=== PATIENT | female | born 1985 | race Caucasian/White ===

== ENCOUNTER 2019-01-26 05:39 | Observation (INO) | payer BC ==
[2019-01-26] MEDS ORDERED: GABAPENTIN 300 MG CAP PO ONE (05:59)
[2019-01-26] MEDS ORDERED: ceFAZolin 2 GM/DEXTROSE 100 ML IV ONE (05:59)
[2019-01-26] MEDS ORDERED: LR 1,000 ML IV ONE (05:59)
[2019-01-26] MEDS ORDERED: PHENAZOPYRIDINE HCL 200 MG TAB PO ONE (05:59)
[2019-01-26] MEDS ORDERED: ACETAMINOPHEN 500 MG TAB PO ONE (05:59)
[2019-01-26] MEDS ORDERED: BUPIVACAINE/EPI 0.5% 30 ML SDV ONE (06:37)
--- NOTE | 2019-01-26 06:46 | PDANEPAE ---
ANE History of Present Illness here for robotic endometriosis excision ANE Past Medical History - Cardiovascular History Hx Hypertension: No Hx Arrhythmias: No Hx Chest Pain: No Hx Coronary Artery / Peripheral Vascular Disease: No Hx CHF / Valvular Disease: No Hx Palpitations: No Cardiovascular History Comment: pre-eclampsia with pregnancies - Pulmonary History Hx COPD: No Hx Asthma/Reactive Airway Disease: Yes Hx Recent Upper Respiratory Infection: No Hx Oxygen in Use at Home: No Hx Sleep Apnea: No Sleep Apnea Screening Result - Last Documented: Negative Pulmonary History Comment: exercise induced - Neurologic History Hx Cerebrovascular Accident: No Hx Seizures: No Hx Dementia: No - Endocrine History Hx Diabetes: No - Renal History Hx Renal Disorders: No - Liver History Hx Hepatic Disorders: No - Neurological & Psychiatric Hx Hx Neurological and Psychiatric Disorders: Yes Neurological / Psychiatric History Comment: anxiety R/T recent accident - Cancer History Hx Cancer: No - GI History Hx Gastrointestinal Disorders: No - Other Health History Other Health History: none - Chronic Pain History Chronic Pain: Yes (tail bone,right shoulder) - Surgical History Prior Surgeries: x 2. wisdom teeth ANE Review of Systems Review of systems is: negative Review of Systems: - Exercise capacity Exercise capacity: >=4 METS METS (RN): 4 METS ANE Patient History - Allergies Allergies/Adverse Reactions: Sulfa (Sulfonamide Antibiotics) Allergy (Verified 01/14/19 15:16) Hives - Home Medications Home medications: home medication list seen and reviewed Home Medications: Contol 01/14/19 [Last Taken Unknown] Levothyroxine 01/14/19 [Last Taken 01/26/19 04:30] - NPO status NPO Status: no food or drink >8 hours NPO Since - Liquids (Date): 01/25/19 NPO Since - Liquids (Time): 21:00 NPO Since - Solids (Date): 01/25/19 NPO Since - Solids (Time): 18:00 - Anes Hx Anes Hx: no prior problems - Smoking Hx Smoking Status: Never smoked - Family Anes Hx Family Hx Anesthesia Complications: none ANE Labs/Vital Signs - Vital Signs Vital Signs: reviewed preoperatively; see RN documention for details Blood Pressure: 126/90 Heart Rate: 79 Respiratory Rate: 18 O2 Sat (%): 96 Height: 160.02 cm Weight: 74.843 kg ANE Physical Exam - Airway Neck exam: FROM Mallampati Score: Class 1 Mouth exam: normal dental/mouth exam - Pulmonary Pulmonary: no respiratory distress - Cardiovascular Cardiovascular: regular rate and rhythym - ASA Status ASA Status: II ANE Anesthesia Plan Anesthesia Plan: general endotracheal anesthesia
[2019-01-26] MEDS ORDERED: MIDAZOLAM 2 MG/2 ML VIAL IVP ONE (06:51)
--- NOTE | 2019-01-26 07:05 | PDHPUP ---
History & Physical Update H&P update statement: This history and physical update is based on an assessment of the patient which was completed after admission or registration (within 24 hours), but prior to the surgery/procedure. H&P update: H&P reviewed & patient examined, no change in patient's condition since H&P completed
[2019-01-26] MEDS ORDERED: PROPOFOL/EMULSION 500 MG/50 ML BOTTLE IV ONE ×2 (07:07→07:11)
[2019-01-26] MEDS ORDERED: ROCURONIUM 100 MG/10 ML VIAL ONE (07:07)
[2019-01-26] MEDS ORDERED: ONDANSETRON 4 MG/2 ML VIAL ONE (07:10)
[2019-01-26] MEDS ORDERED: DEXAMETHASONE 4 MG/ML VIAL ONE ×2 (07:10)
[2019-01-26] MEDS ORDERED: fentaNYL 100 MCG/2 ML INJ ONE ×2 (07:36→09:02)
[2019-01-26] MEDS ORDERED: SUGAMMADEX SODIUM 200 MG/2 ML VIAL IVP ONE (08:37)
[2019-01-26] MEDS ORDERED: HYDROCODONE/APAP 5/325 TAB PO PRN (08:38)
[2019-01-26] MEDS ORDERED: ONDANSETRON 4 MG/2 ML VIAL IVP PRN ×2 (08:38→09:08)
[2019-01-26] MEDS ORDERED: NS 500 ML IV PRN (08:38)
[2019-01-26] MEDS ORDERED: PROMETHAZINE HCL 25 MG/ML INJ IVP PRN (08:38)
[2019-01-26] MEDS ORDERED: HYDROmorphONE/DILAUDID 1 MG/ML INJ IVP PRN ×2 (08:38→09:08)
[2019-01-26] MEDS ORDERED: ALBUTEROL 3 ML DEYVIAL IH PRN (08:38)
[2019-01-26] MEDS ORDERED: LR 500 ML IV PRN (08:38)
[2019-01-26] MEDS ORDERED: DEXAMETHASONE 4 MG/ML VIAL IVP PRN (08:38)
[2019-01-26] MEDS ORDERED: NALOXONE HCL 0.4 MG/ML INJ IVP PRN (08:38)
[2019-01-26] MEDS ORDERED: oxyCODONE IR 5 MG TAB PO PRN (08:38)
[2019-01-26] MEDS ORDERED: HYDROmorphONE/DILAUDID 1 MG/ML INJ ONE (09:02)
[2019-01-26] MEDS ORDERED: DIAZEPAM 10 MG/2 ML SYR ONE (09:02)
[2019-01-26] MEDS: fentaNYL 100 MCG/2 ML INJ IVP PRN ×2 (09:04→09:17)
[2019-01-26] MEDS: DIAZEPAM 10 MG/2 ML SYR IVP PRN ×2 (09:06→09:19)
[2019-01-26] MEDS ORDERED: OXYCODONE/APAP 5/325 TAB PO PRN (09:08)
[2019-01-26] MEDS ORDERED: ONDANSETRON DISINTEGRATING 4 MG TAB PO PRN (09:08)
--- NOTE | 2019-01-26 09:12 | POSTOPPROG ---
Post Op Note Date of Operation: 01/26/19 Surgeon: Godfrey Tello Information Clerk Brokerage: Giuliana Teague Anesthesiologist: James Anesthesia: GET(General Endotracheal) Pre-op Diagnosis: Dysmenorrhea Post-op Diagnosis: Same Procedure: Robotic hyst/LSO, excision of endo, US Lig colpopexy Findings: Endo Inf/Abcess present in the surg proc area at time of surgery?: No EBL: Minimal Complications: None
[2019-01-26] MEDS ORDERED: LR 1,000 ML IV SCH (09:30)
--- NOTE | 2019-01-26 09:43 | GOP ---
[f rep st] OPERATIVE REPORT DATE OF OPERATION: 01/26/2019 SURGEON: Godfrey Tello MD HOME APPLIANCE TECHNICIAN: Giuliana Teague CFA ANESTHESIA: General. PREOPERATIVE DIAGNOSIS: 1. Dysmenorrhea. 2. Endometriosis. 3. Ovulatory pain. 4. Incomplete uterine prolapse. POSTOPERATIVE DIAGNOSIS: 1. Dysmenorrhea. 2. Endometriosis. 3. Ovulatory pain. 4. Incomplete uterine prolapse. PROCEDURE PERFORMED: 1. Robotic-assisted total laparoscopic hysterectomy, bilateral salpingectomy, left oophorectomy. 2. Bilateral ureterolysis. 3. Excision of endometriosis and anterior and posterior cul-de-sacs, both pelvic sidewalls. 4. Right ovarian pexy. 5. Uterosacral ligament colpopexy. FINDINGS: SPECIMENS: 1. Uterus, bilateral tubes, and left ovary. 1. Pelvic peritoneum with endometriosis. 2. ESTIMATED BLOOD LOSS: Scant. DESCRIPTION OF PROCEDURE: The patient was taken to the operating room where she was identified. Gen eral anesthesia was administered and found to be adequate. She was placed in the lithotomy position and prepared and draped in normal sterile fashion. A Navarro catheter was placed in her bladder. A VC are uterine manipulator was placed into the endometrial cavity and sutured to the cervix. An 8 mm infraumbilical incision was made with a scalpel. The Veress needle with the CO2 gas flowing was advanced into the peritoneal cavity. The abdomen was then insufflated with carbon dioxide gas. The 8 mm trocar followed by the laparoscope was then inserted. The upper abdomen was unremarkable. There was no evidence of endometriosis on either diaphragm, liver, gallbladder, stomach, or upper abd ominal bowel. Two lateral ports were placed on the right and 1 on the left under direct visualizatio n. She then was placed in Trendelenburg position, and the da Rowdy robot docked on the left side. T he instruments were then brought into the abdominal cavity under direct visualization. The patient w as noted have endometriosis mildly in the anterior cul-de-sac, more extensively in the posterior cul- de-sac, both pelvic sidewalls, as well as some on the uterine serosa. The right ovary only had 1 les ion. As a result, a decision was made to perform a hysterectomy with removal of her left ovary which was also adherent to the left pelvic sidewall. Her right ovary was left in place. The posterior cul-de-sac peritoneum from the distal rectum up to the cervix and laterally to the uter osacral ligaments was completely excised. She required a bilateral ureterolysis given endometriosis overlying both ureters as well as the adhesion on the left ovary to the left ureter. The peritoneum at the pelvic brims was incised. The ureters were gently dissected free from the pelvic brim down to the bladder. Once this was accomplished, the entire pelvic sidewall peritoneum was completely excis ed. The left infundibulopelvic vessels were skeletonized, cauterized, and transected. The anterior of the broad ligament was then incised across the cervix and the bladder gently dissected off the cer vix and upper vagina. The uterine arteries were then coagulated and divided just at their origin mikayla r the hypogastric arteries. The right fallopian tube was along the mesosalpinx. A circumf erential colpotomy incision was then made with the hot darian, and all specimens were removed through the vagina. The vaginal cuff was closed with a running suture of 0 V-Loc 180. A bilateral uterosac ral ligament colpopexy was performed by attaching the lateral aspects of the vaginal cuff to the ipsi lateral uterosacral ligaments near the coccygeal-sacrospinous ligament complexes. The pelvis was the n irrigated with sterile saline, and hemostasis was present. Given the patient's ovulatory pain and now exposed retroperitoneum which would cause worsening pain, a right ovarian pexy was required. The right ovary was attached to the right round ligament near the internal inguinal ring with 3-0 Vicryl suture. The robot was then undocked. The umbilical fascia was closed with 0 Vicryl. All skin incisions were closed with 4-0 Monocryl. Anesthesia was reversed. The patient was taken to the PACU awake in stab le condition. COMPLICATIONS: None. DISPOSITION: Patient is stable to PACU. /[id number]/MODL
[2019-01-26] MEDS: HYDROCODONE/APAP 5/325 TAB PO PRN ×4 (11:35→23:37)
[2019-01-26] MEDS: SIMETHICONE 80 MG TAB CHEW PO SCH ×3 (11:35→21:47)
--- NOTE | 2019-01-26 13:06 | POSTANESTH ---
Post Anesthetic Evaluation Cardiovascular Status: Normal, Stable Respiratory Status: Normal, Stable Level of Consciousness/Mental Status: Can Participate in Eval Pain Control: Adequate, Prn Tx Ordered Nausea/Vomiting Control: Adequate, Prn Tx Ordered Complications Possibly Related to Anesthesia: None Noted
[2019-01-26] MEDS: KETOROLAC 30 MG/1 ML SDV IVP SCH ×2 (13:57→19:39)
[2019-01-26] MEDS: GABAPENTIN 100 MG CAP PO SCH ×2 (15:38→21:47)
[2019-01-26] MEDS: DOCUSATE SODIUM 100 MG CAP PO SCH (19:38)
[2019-01-27] MEDS: KETOROLAC 30 MG/1 ML SDV IVP SCH ×2 (01:35→07:26)
[2019-01-27] MEDS: HYDROCODONE/APAP 5/325 TAB PO PRN ×2 (04:15→08:24)
[2019-01-27 04:46] LABS: PLATELET COUNT 228 10^3/uL (150-400)
[2019-01-27] MEDS: SIMETHICONE 80 MG TAB CHEW PO SCH (07:28)
[2019-01-27] MEDS: DOCUSATE SODIUM 100 MG CAP PO SCH (07:28)
[2019-01-27] MEDS: GABAPENTIN 100 MG CAP PO SCH (08:23)
[2019-01-27 09:40] VITALS: BP 116/78
--- NOTE | 2019-01-27 11:47 | GDS ---
[f rep st] DISCHARGE SUMMARY DISCHARGE DIAGNOSES: 1. Dysmenorrhea. 2. Endometriosis. 3. Midcycle pain. PROCEDURES: 1. Robotic-assisted total laparoscopic hysterectomy, bilateral salpingectomy, left oophorectomy. 2. Uterosacral ligament colpopexy. 3. Excision of endometriosis. 4. Right ovariopexy. 5. Bilateral ureterolysis. HISTORY: The patient is a 33-year-old female with a long history of pelvic pain, secondary to endome triosis. She was taken to the operating room on 01/26/2019, where she underwent the above-mentioned procedures without complications. HOSPITAL COURSE: Her postoperative course was uneventful. The morning after surgery, she was ambula ting, voiding, and tolerating a general diet. She was discharged home with [place] and ibuprofen for p ain. She is to follow up in the office 2 weeks after discharge. /[id number]/MODL
== END 2019-01-27 12:12 | disposition home or self-care (01) ==
LOC: FSGY 05:39 → F3E 09:08 → FOB 10:33
PROVIDERS: ADMIT Obstetrics & Gynecology; ATTEND Obstetrics & Gynecology
DX: N80.3 Endometriosis of pelvic peritoneum (principal); N94.6 Dysmenorrhea, unspecified; N81.2 Incomplete uterovaginal prolapse
CPT/HCPCS: 57425; 58571; G0378; J0690; J1100; J1170; J1885; J2250; J2405; J2704; J3010; J3360